=== PATIENT | female | born 1965 | race Caucasian/White ===

== ENCOUNTER → 2017-07-31 | Outpatient (CLI) | payer OTHER | LOC: FIMAGING 07:53 | PROVIDERS: ATTEND Family Medicine | DX: Z12.31 Encounter for screening mammogram for malignant neoplasm of breast (principal) | CPT/HCPCS: G0202 ==

== ENCOUNTER 2019-01-31 07:06 | Emergency (ER) | payer OTHER ==
[2019-01-31] MEDS ORDERED: ACETAMINOPHEN 500 MG TAB PO ONE (09:32)
[2019-01-31 10:29] LABS: PLATELET COUNT 195 10^3/uL (150-400)
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
[2019-01-31 12:03] VITALS: BP 127/75
== END 2019-01-31 12:01 | disposition home or self-care (01) ==
DX: R25.1 Tremor, unspecified (principal)